=== PATIENT | male | born 1985 | race Caucasian/White ===

== ENCOUNTER 2021-04-26 09:52 | Emergency (ER) | payer MEDICAID, OTHER ==
[~2021-04-26] VITALS: Ht 175.3 cm; Wt 68.2 kg
[2021-04-26] MEDS ORDERED: COMBIVENT RESPIMAT 100-20MCG INHALER 4GM INH STA (10:04)
[2021-04-26 10:29] LABS: BASO % 0.3 % (0.0-1.0); EOS # 0.7 10^3/uL (0.0-0.5); EOS % 6.1 % (0.0-3.0); HEMATOCRIT 37.1 % (42.0-52.0); HEMOGLOBIN 12.5 g/dl (13.5-17.5); LYMPH # 1.2 10^3/uL (1.5-5.0); LYMPH % 11.1 % (24.0-44.0); MEAN CORPUSCULAR HEMOGLOBIN 31.8 pg (27.0-33.0); MEAN CORPUSCULAR HGB CONC 33.7 g/dl (32.0-36.5); MEAN CORPUSCULAR VOLUME 94.4 fl (80.0-96.0); MONO # 0.8 10^3/uL (0.0-0.8); MONO % 6.8 % (2.0-8.0); NEUTROPHILS # 8.4 10^3/uL (1.5-8.5); NEUTROPHILS % 75.3 % (36.0-66.0); PLATELET COUNT, AUTOMATED 182 10^3/uL (150-450); RED BLOOD COUNT 3.93 10^6/uL (4.30-6.10); WHITE BLOOD COUNT 11.1 10^3/uL (4.0-10.0)
--- NOTE | 2021-04-26 10:44 | REP ---
INDICATION: DYSPNEA/COUGH. COMPARISON: None. TECHNIQUE: Two AP views chest. FINDINGS: There is no acute infiltrate or pulmonary edema. Lungs are clear. The heart is not significantly enlarged. The mediastinal silhouette is unremarkable. The visualized osseous structures are intact. IMPRESSION: No acute pulmonary disease. <Electronically signed by Nitin Gonzalez > 04/26/21 [id number]
[2021-04-26 11:03] LABS: ALBUMIN 3.6 GM/DL (3.2-5.2); ALT/SGPT 18 U/L (12-78); BILIRUBIN,DIRECT 0.2 MG/DL (0.0-0.2); BILIRUBIN,TOTAL 0.6 MG/DL (0.2-1.0); BLOOD UREA NITROGEN 9 MG/DL (7-18); CALCIUM LEVEL 9.1 MG/DL (8.5-10.1); CARBON DIOXIDE LEVEL 27 MEQ/L (21-32); CHLORIDE LEVEL 107 MEQ/L (98-107); CK-MB VALUE MASS 1.1 NG/ML (<3.6); CPK CREATINE PHOSPHOKINASE 130 U/L (39-308); CREATININE FOR GFR 0.88 MG/DL (0.70-1.30); GLOMERULAR FILTRATION RATE > 60.0 (>60); GLUCOSE, FASTING 106 MG/DL (70-100); MB/CK RELATIVE INDEX 0.85 (< OR =4); NT-PRO BNP 129 PG/ML (<125); POTASSIUM SERUM 4.5 MEQ/L (3.5-5.1); SODIUM LEVEL 139 MEQ/L (136-145); TOTAL PROTEIN 7.1 GM/DL (6.4-8.2); TROPONIN I 0.03 NG/ML (< 0.10)
[2021-04-26 12:00] VITALS: BP 109/57
[2021-04-26] MEDS ORDERED: PRED20TA PO (12:06)
[2021-04-26] MEDS ORDERED: ALBU83IN NEB (12:07)
[2021-04-26] MEDS ORDERED: IPRA2IN NEB (12:12)
[2021-04-26] MEDS ORDERED: COMPMIS43 XX (12:16)
--- NOTE | 2021-04-26 20:11 | ECGEPIP ---
[facility] - ED Test Date: 2021-04-26 Pat Name: BELLA URENA Department: Room: - Gender: Male Emergency Room Tech: : 1985 Requested By: Maria Eugenia Miranda Order Number: [id number] Reading MD: Maria Eugenia Miranda Measurements Intervals [place] Rate: 91 P: 72 MT: 130 QRS: 69 QRSD: 94 T: 56 QT: 342 QTc: 420 Interpretive Statements Normal sinus rhythm irbbb no prior Electronically Signed on 04-26-2021 20:11:21 EDT by Maria Eugenia Miranda
== END 2021-04-26 12:31 | disposition home or self-care (01) ==
LOC: M ED 09:52 → EDBD 09:52 → M ED 12:31
DX: J44.1 Chronic obstructive pulmonary disease with (acute) exacerbation (principal); F17.200 Nicotine dependence, unspecified, uncomplicated; Z79.899 Other long term (current) drug therapy

== ENCOUNTER → 2021-08-19 | Outpatient (CLI) | payer OTHER ==
[~2021-08-19] MED LIST: ALBU83IN NEB; COMPMIS43 XX; IPRA2IN NEB; PRED20TA PO
[2021-08-19 12:59] LABS: HEMATOCRIT 37.2 % (42.0-52.0); HEMOGLOBIN 12.7 g/dl (13.5-17.5); MEAN CORPUSCULAR HEMOGLOBIN 31.3 pg (27.0-33.0); MEAN CORPUSCULAR HGB CONC 34.1 g/dl (32.0-36.5); MEAN CORPUSCULAR VOLUME 91.6 fl (80.0-96.0); PLATELET COUNT, AUTOMATED 206 10^3/uL (150-450); RED BLOOD COUNT 4.06 10^6/uL (4.30-6.10); WHITE BLOOD COUNT 5.1 10^3/uL (4.0-10.0)
[2021-08-19 13:47] LABS: ALBUMIN 3.9 GM/DL (3.2-5.2); ALT/SGPT 18 U/L (12-78); BILIRUBIN,TOTAL 0.3 MG/DL (0.2-1.0); BLOOD UREA NITROGEN 10 MG/DL (7-18); CALCIUM LEVEL 9.1 MG/DL (8.5-10.1); CARBON DIOXIDE LEVEL 30 MEQ/L (21-32); CHLORIDE LEVEL 103 MEQ/L (98-107); GLOMERULAR FILTRATION RATE > 60.0 (>60); GLUCOSE, FASTING 95 MG/DL (70-100); POTASSIUM SERUM 3.5 MEQ/L (3.5-5.1); SODIUM LEVEL 137 MEQ/L (136-145); TOTAL PROTEIN 6.9 GM/DL (6.4-8.2)
[2021-08-19 13:53] LABS: HEPATITIS B SURFACE ANTIGEN NEGATIVE (NEGATIVE)
[2021-08-19 14:21] LABS: GC DNA AMPLIFICATION NEGATIVE (NEGATIVE)
[2021-08-19 14:21] LABS: HEPATITIS C VIRUS ABY INDEX 0.1 INDEX (<0.8)
[2021-08-19 14:22] LABS: HIV 1&2 SCREEN CENTAUR NEGATIVE (NEGATIVE)
--- NOTE | 2021-08-19 20:53 | ECGEPIP ---
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 Electronically Signed on 08-19-2021 20:52:45 EST by Sanya Mcgowan
== END ==
LOC: M LAB 12:09
PROVIDERS: ATTEND Family Medicine
DX: F11.20 Opioid dependence, uncomplicated (principal)

== ENCOUNTER 2025-03-01 18:10 | Emergency (ER) | payer MEDICAID, OTHER, SELFPAY ==
[~2025-03-01] VITALS: Ht 175.3 cm; Wt 81.8 kg
[~2025-03-01 18:10] MED LIST changes: +ALBU2.5V10 NEB; -ALBU83IN NEB
[2025-03-01 18:38] VITALS: BP 134/90; TEMP 98; O2SAT 98
[2025-03-01] MEDS ORDERED: MORP-137 PO (18:49)
[2025-03-01] MEDS ORDERED: OXYC1TAB23 PO (18:49)
[2025-03-01] MEDS ORDERED: ERYT5OIN25 (18:49)
[2025-03-01 19:40] LABS: PLATELET COUNT, AUTOMATED 200 10^3/uL (150-450)
[2025-03-01 19:56] LABS: BARBITURATES URINE NEGATIVE (NEGATIVE); BENZODIAZEPINES URINE NEGATIVE (NEGATIVE); COCAINE METABOLITE URINE NEGATIVE (NEGATIVE); METHADONE URINE NEGATIVE (NEGATIVE); PHENCYCLIDINE URINE NEGATIVE (NEGATIVE)
[2025-03-01] MEDS ORDERED: ISOVUE-370 76% 100 ML VIAL As Ordered ONE (19:58)
[2025-03-01 20:02] LABS: ETHYL ALCOHOL (ETHANOL) < 0.003 % (0.000-0.010)
[2025-03-01 20:03] LABS: SALICYLATE LEVEL < 3.0 MG/DL (<30)
[2025-03-01 20:04] LABS: ALT/SGPT 90 U/L (7.0-40); AST/SGOT 66 U/L (<34); C REACTIVE PROTEIN QUANTITATIV 4.35 MG/DL (<1.0); CALCIUM LEVEL 9.3 MG/DL (8.5-10.1); CARBON DIOXIDE LEVEL 24 MMOL/L (20-31); CHLORIDE LEVEL 100 MMOL/L (98-107); CREATININE FOR GFR 0.94 MG/DL (0.70-1.30); GLOMERULAR FILTRATION RATE > 90.0 (>60); POTASSIUM SERUM 4.2 MMOL/L (3.5-5.1); SODIUM LEVEL 136 MMOL/L (136-145)
[2025-03-01 20:06] LABS: AMPHETAMINES LEVEL URINE POSITIVE (NEGATIVE); CANNABINOIDS URINE POSITIVE (NEGATIVE); ERYTHROCYTE SEDIMENTATION RATE 37 mm/hr (0-15); OPIATES URINE POSITIVE (NEGATIVE)
[2025-03-01] MEDS ORDERED: ALBU2.5V10 NEB (20:11)
[2025-03-01] MEDS ORDERED: HOME MED LIST COMPLETE! XX SCH (20:15)
[2025-03-01] MEDS ORDERED: NICOTINE 21 MG/24 HR 1 EA TRANSDERMAL TD PRN (20:50)
== END 2025-03-01 23:15 | disposition home or self-care (01) ==
LOC: M ED 18:10
DX: F32.A Depression, unspecified (principal); F43.20 Adjustment disorder, unspecified; M46.92 Unspecified inflammatory spondylopathy, cervical region; F17.200 Nicotine dependence, unspecified, uncomplicated
CPT/HCPCS: 70498; 72125; 73630; 80048; 80076; 80143; 80307; 82077; 84145; 84443; 85027; 85652; 86140; 99284; Q9967